=== PATIENT | male | born 1980 | race Caucasian/White ===

== ENCOUNTER → 2023-10-12 11:04 | Outpatient (BNVA) | payer OTHER, SELFPAY | PROVIDERS: Visit Provider Nurse Practitioner Family | DX: G62.9 Polyneuropathy, unspecified (principal); M54.9 Dorsalgia, unspecified; G89.29 Other chronic pain; Z87.891 Personal history of nicotine dependence; E66.9 Obesity, unspecified; Z68.37 Body mass index [BMI] 37.0-37.9, adult; Z12.5 Encounter for screening for malignant neoplasm of prostate; R53.83 Other fatigue; E66.09 Other obesity due to excess calories | CPT/HCPCS: 80053; 80061; 82607; 82746; 84402; 84403; 84443; 85025; G0103 ==

== ENCOUNTER 2023-12-21 10:22 | Outpatient (CLI) | payer OTHER, SELFPAY ==
--- NOTE | 2023-12-21 10:31 | XR_ITS ---
WS: [id number] XR lumbar spine 2-3V* [id number] REASON FOR EXAM: pain FINDINGS: No significant scoliosis. Moderate straightening of the normal lordosis. No significant vertebral body abnormality. Mild endplate sclerosis with mild osteophytosis at L4-L5. Disc space demonstrates minimal narrowing. Mild narrowing of the L5-S1 disc space. No spondylolysis. No significant spondylolisthesis. XR/XR lumbar spine 2-3V* [id number] IMPRESSION: Mild degenerative spondylosis L4-L5 and L5-S1.
== END 2023-12-21 10:23 | disposition home or self-care (01) ==
LOC: RAD 10:24
PROVIDERS: PCP Nurse Practitioner Family; Visit Provider Nurse Practitioner Family
DX: M54.50 Low back pain, unspecified (principal); M54.31 Sciatica, right side; W19.XXXA Unspecified fall, initial encounter; Y92.009 Unspecified place in unspecified non-institutional (private) residence as the place of occurrence of the external cause
CPT/HCPCS: 72100